=== PATIENT | female | born 1950 | race Two or more races ===

== ENCOUNTER 2017-12-24 06:19 | Day surgery (SDC) | payer OTHER | END 2017-12-24 10:50 | disposition home or self-care (01) | LOC: AMB-ENDOS 06:19 | DX: K57.32 Diverticulitis of large intestine without perforation or abscess without bleeding (principal); K64.8 Other hemorrhoids ==

== ENCOUNTER 2018-10-15 11:44 | Inpatient (IN) | payer OTHER ==
[~2018-10-15] VITALS: Ht 154.9 cm; Wt 43.1 kg
[2018-11-18] MEDS ORDERED: LEVO-T75 MCG PO (14:48)
[2018-11-18] MEDS ORDERED: ALLEGRA ALLERG180 MG PO (14:48)
[2018-11-18] MEDS ORDERED: PEPCID40 MG PO (14:48)
[2018-11-18] MEDS ORDERED: ASA81 MG PO (14:49)
[2018-11-18] MEDS ORDERED: ZETIA10 MG PO (14:49)
[2018-11-18] MEDS ORDERED: ZANTAC150 M3 PO (14:49)
[2018-11-18] MEDS ORDERED: SULINDAC200 MG PO (14:49)
[2018-11-18] MEDS ORDERED: DICLOFENAC SODI50 MG PO (14:50)
[2018-11-28] MEDS ORDERED: TRAM1TAB98 PO (08:30)
[2018-11-28] MEDS ORDERED: PEPCID COMPLET1 EACH PO (08:31)
[2018-11-28] MEDS ORDERED: PROTONIX40 MG PO (08:32)
[2018-11-28] MEDS ORDERED: INTESTINEX680 M1 PO (08:32)
== END 2018-11-28 10:57 | disposition home or self-care (01) | DRG 330 ==
LOC: O/R 11-24 06:00 → SURH 11-24 06:00
PROVIDERS: ADMIT Surgery
PROC: 0DJD8ZZ Inspection of Lower Intestinal Tract, Via Natural or Artificial Opening Endoscopic (ICD-10-PCS; 2018-11-24)
PROC: 0DTN4ZZ Resection of Sigmoid Colon, Percutaneous Endoscopic Approach (ICD-10-PCS; principal; 2018-11-24 12:45)
DX: K57.32 Diverticulitis of large intestine without perforation or abscess without bleeding (principal); G24.8 Other dystonia; E03.8 Other specified hypothyroidism; E78.00 Pure hypercholesterolemia, unspecified; R19.4 Change in bowel habit; J30.89 Other allergic rhinitis

== ENCOUNTER 2018-11-18 15:54 | Outpatient (CLI) | payer OTHER ==
[~2018-11-18 15:54] MED LIST: ALLEGRA ALLERG180 MG PO; ASA81 MG PO; DICLOFENAC SODI50 MG PO; LEVO-T75 MCG PO; PEPCID40 MG PO; SULINDAC200 MG PO; ZANTAC150 M3 PO; ZETIA10 MG PO
== END 2018-11-18 16:02 | disposition home or self-care (01) ==
LOC: LAB 15:54
DX: D68.8 Other specified coagulation defects (principal)